=== PATIENT | female | born 1940 | race Caucasian/White ===

== ENCOUNTER 2023-08-08 12:00 | Inpatient (IN) | payer MEDICAID, MEDICARE ==
[~2023-08-08] VITALS: Ht 167.6 cm; Wt 68.0 kg
[2023-08-08 12:03] VITALS: BP 121/56; PULSE 101; RESP 18; TEMP 98.3
[2023-08-08] MEDS: NACL 0.9% 500 ML IV SCH (13:09)
[2023-08-08 13:12] LABS: RSV NEGATIVE (NEGATIVE)
[2023-08-08 13:15] LABS: BASOPHILS # (AUTO) 0.1 K/uL (0.00-0.22); BASOPHILS % (AUTO) 0.6 % (0.0-2.0); EOSINOPHILS # (AUTO) 0.1 K/uL (0-0.4); EOSINOPHILS % (AUTO) 1.3 % (0.0-4.0); HEMATOCRIT 31.7 % (36-48); HEMOGLOBIN 10.4 g/dL (12.0-16.0); LYMPHOCYTES % (AUTO) 10.3 % (20.5-51.1); MEAN CORPUSCULAR HEMOGLOBIN 30 pg (27-31); MEAN CORPUSCULAR HGB CONC 33 g/dL (33-37); MEAN CORPUSCULAR VOLUME 92.1 fL (80-94); MONOCYTES # (AUTO) 0.7 K/uL (0.8-1.0); MONOCYTES % (AUTO) 6.9 % (1.7-9.3); NEUTROPHILS # (AUTO) 8.1 K/uL (1.8-7.7); NEUTROPHILS % (AUTO) 80.9 % (42.2-75.2); PLATELET COUNT (AUTO) 231 K/uL (140-450); RED BLOOD CELL COUNT(AUTO) 3.45 MIL/uL (4.20-5.40); RED CELL DISTRIBUTION WIDTH 14.6 % (11.6-13.7)
[2023-08-08 13:29] LABS: ANION GAP 9.4 (8-16); CALCIUM 8.1 mg/dL (8.5-10.1); CHLORIDE 101 mmol/L (98-107); CREATININE 0.5 mg/dL (0.6-1.3); GLUCOSE 50 mg/dL (74-106); POTASSIUM 3.4 mmol/L (3.5-5.1); SODIUM SERUM 141 mmol/L (136-145); UREA NITROGEN, BLOOD 12 mg/dL (7-18)
[2023-08-08 13:38] LABS: ALANINE AMINOTRANSFERASE 7 U/L (12-78); ALKALINE PHOSPHATASE 99 U/L (50-136); ASPARTATE AMINOTRANSFERASE 33 U/L (15-37); BILIRUBIN,DIRECT 0.5 mg/dL (0.0-0.3); TOTAL BILIRUBIN 1.4 mg/dL (0.0-1.0); TOTAL PROTEIN, SERUM 6.7 g/dL (6.4-8.2)
[2023-08-08 13:40] LABS: LACTIC ACID 1.9 mmol/L (0.4-2.0)
[2023-08-08 14:24] VITALS: O2SAT 98
[2023-08-08 14:26] LABS: FLU A ANTIGEN negative (NEGATIVE); FLU B ANTIGEN negative (NEGATIVE)
[2023-08-08 14:28] LABS: APPEARANCE,URINE SL CLOUDY (CLEAR); BILIRUBIN,URINE NEGATIVE (NEGATIVE); BLOOD, URINE TRACE-I (NEGATIVE); COLOR,URINE OTHER (YELLOW); LEUKOCYTE ESTERASE ,URINE 2+ (NEGATIVE); NITRITE, URINE POSITIVE (NEGATIVE); PROTEIN,URINE 1+ (NEGATIVE); UGLUCOSE TRACE (NEGATIVE)
[2023-08-08 14:38] LABS: BLOOD GAS BASE EXCESS 10.3 mmol/L (-2.0-2.0); BLOOD GAS HCO3 35.1 mmol/L (22-26); BLOOD GAS PCO2 48.2 mmHg (35-45); BLOOD GAS PO2 66.7 mmHg (75-100)
[2023-08-08 14:39] LABS: BLOOD GAS O2 SAT% 93.2 % (92.0-98.5)
[2023-08-08 14:53] LABS: BACTERIA,URINE 10-30 (MOD) /HPF (None Seen); SQUAMOUS EPITHELIAL CELL,UR 0-3 (FEW) /LPF (0-3 (FEW)); WBC,URINE 16-25 (MOD) /HPF (0-5); YEAST,URINE Moderate /HPF (None Seen)
[2023-08-08] MEDS: NACL 0.9% 500 ML IV ONE (15:55)
[2023-08-08] MEDS ORDERED: BENZONATATE 100 MG CAPLF PO PRN (15:55)
[2023-08-08] MEDS ORDERED: CLONIDINE HYDROCHLORIDE 0.1 MG TAB PO PRN (15:55)
[2023-08-08] MEDS ORDERED: ACETAMINOPHEN 325 MG TAB PO PRN (15:55)
[2023-08-08] MEDS ORDERED: ONDANSETRON 4 MG/2 ML VIAL IVP PRN (15:55)
[2023-08-08] MEDS ORDERED: INSULIN LISPRO SLIDING SCALE 100 UNITS/ML VIAL SUBQ PRN (16:00)
[2023-08-08] MEDS ORDERED: PIPERACILLIN/TAZOBACTAM 3.375 GM VIAL IV ONE (16:43)
[2023-08-08] MEDS: PIPERACILLIN/TAZOBACTAM 3.375 GM in DEXTROSE 5% 50 ML IV ONE (16:55)
[2023-08-08] MEDS: NACL 0.9% 1,000 ML IV SCH (17:04)
[2023-08-08] MEDS ORDERED: cefTRIAXone 1,000 MG VIAL ONE (17:08)
[2023-08-08] MEDS: BLOOD GLUCOSE MONITORING 1 DEV DEV FS SCH (17:23)
[2023-08-08] MEDS: DEXTROSE 50% 50 ML SYR IVP PRN (17:30)
[2023-08-08] MEDS ORDERED: AZITHROMYCIN 500 MG INJ VIAL IV ONE (19:15)
[2023-08-08 19:21] VITALS: PULSE 115; RESP 17; O2SAT 99
[2023-08-08] MEDS: LEVALBUTEROL 0.63 MG/3 ML NEBU INH SCH (19:21)
[2023-08-08] MEDS: AZITHROMYCIN 500 MG in DEXTROSE 5% 250 ML IV SCH (20:40)
[2023-08-08 22:10] VITALS: BP 131/67; PULSE 111; PULSE 118; RESP 17; RESP 18; TEMP 98.2; O2SAT 97; O2SAT 99
[2023-08-09] VITALS (12 sets, daily range): BP systolic 104–150; BP diastolic 50–98; PULSE 98–122; RESP 16–20; TEMP 98–98.5; O2SAT 95–100
[2023-08-09 06:51] LABS: BASOPHILS # (AUTO) 0.1 K/uL (0.00-0.22); BASOPHILS % (AUTO) 0.6 % (0.0-2.0); EOSINOPHILS # (AUTO) 0.1 K/uL (0-0.4); EOSINOPHILS % (AUTO) 0.8 % (0.0-4.0); HEMATOCRIT 31.7 % (36-48); HEMOGLOBIN 10.6 g/dL (12.0-16.0); MEAN CORPUSCULAR HEMOGLOBIN 31 pg (27-31); MEAN CORPUSCULAR HGB CONC 34 g/dL (33-37); MEAN CORPUSCULAR VOLUME 91.5 fL (80-94); MONOCYTES # (AUTO) 0.8 K/uL (0.8-1.0); MONOCYTES % (AUTO) 8.8 % (1.7-9.3); NEUTROPHILS # (AUTO) 7.2 K/uL (1.8-7.7); NEUTROPHILS % (AUTO) 78.8 % (42.2-75.2); PLATELET COUNT (AUTO) 249 K/uL (140-450); RED BLOOD CELL COUNT(AUTO) 3.46 MIL/uL (4.20-5.40); RED CELL DISTRIBUTION WIDTH 15.1 % (11.6-13.7); WHITE BLOOD COUNT (AUTO) 9.2 K/uL (4.8-10.8)
[2023-08-09 07:18] LABS: ANION GAP 12.9 (8-16); CALCIUM 8.2 mg/dL (8.5-10.1); CARBON DIOXIDE 31.5 mmol/L (21-32); CHLORIDE 104 mmol/L (98-107); CREATININE 0.6 mg/dL (0.6-1.3); GLUCOSE 116 mg/dL (74-106); POTASSIUM 3.4 mmol/L (3.5-5.1); SODIUM SERUM 145 mmol/L (136-145); UREA NITROGEN, BLOOD 13 mg/dL (7-18)
[2023-08-09] MEDS: POTASSIUM CHLORIDE 10 MEQ TABER PO SCH (09:09)
[2023-08-09] MEDS: ENOXAPARIN 40 MG/0.4 ML SYR SUBQ SCH (09:13)
[2023-08-10] VITALS (8 sets, daily range): BP systolic 137–155; BP diastolic 55–92; PULSE 94–127; RESP 18–20; TEMP 96.8–98.6; O2SAT 94–97
[2023-08-10] MEDS: HYDROcodone/APAP 5/325 MG 1 TAB TAB PO PRN (00:06)
[2023-08-10 09:37] LABS: BASOPHILS % (AUTO) 0.4 % (0.0-2.0); EOSINOPHILS # (AUTO) 0.1 K/uL (0-0.4); EOSINOPHILS % (AUTO) 0.7 % (0.0-4.0); HEMATOCRIT 29.6 % (36-48); HEMOGLOBIN 9.8 g/dL (12.0-16.0); MEAN CORPUSCULAR HEMOGLOBIN 31 pg (27-31); MEAN CORPUSCULAR HGB CONC 33 g/dL (33-37); MEAN CORPUSCULAR VOLUME 91.8 fL (80-94); MONOCYTES # (AUTO) 0.6 K/uL (0.8-1.0); MONOCYTES % (AUTO) 6.2 % (1.7-9.3); NEUTROPHILS # (AUTO) 7.2 K/uL (1.8-7.7); NEUTROPHILS % (AUTO) 81.7 % (42.2-75.2); PLATELET COUNT (AUTO) 288 K/uL (140-450); RED BLOOD CELL COUNT(AUTO) 3.23 MIL/uL (4.20-5.40); WHITE BLOOD COUNT (AUTO) 8.9 K/uL (4.8-10.8)
[2023-08-10 09:57] LABS: ALANINE AMINOTRANSFERASE 48 U/L (12-78); ALBUMIN 2.1 g/dL (3.4-5.0); ALKALINE PHOSPHATASE 101 U/L (50-136); ANION GAP 18.9 (8-16); ASPARTATE AMINOTRANSFERASE 33 U/L (15-37); CALCIUM 8.5 mg/dL (8.5-10.1); CARBON DIOXIDE 23.9 mmol/L (21-32); CHLORIDE 105 mmol/L (98-107); CREATININE 0.5 mg/dL (0.6-1.3); GLUCOSE 111 mg/dL (74-106); POTASSIUM 3.8 mmol/L (3.5-5.1); SODIUM SERUM 144 mmol/L (136-145); TOTAL BILIRUBIN 1.1 mg/dL (0.0-1.0); TOTAL PROTEIN, SERUM 6.7 g/dL (6.4-8.2); UREA NITROGEN, BLOOD 13 mg/dL (7-18)
[2023-08-10] MEDS ORDERED: BENZ100C6 PO (12:51)
[2023-08-10] MEDS ORDERED: AZIT250T11 PO (12:51)
[2023-08-10] MEDS ORDERED: ACET-1182 PO (12:51)
[2023-08-10] MEDS ORDERED: LEVO750T75 PO (12:51)
[2023-08-10] MEDS ORDERED: THERAHONEY GEL 42.5 GM TP PRN (12:55)
[2023-08-10] MEDS ORDERED: FOAM DRESSING TP PRN (12:55)
[2023-08-10] MEDS: FOAM DRESSING TP SCH (13:09)
[2023-08-10] MEDS: THERAHONEY GEL 42.5 GM TP SCH (13:10)
[2023-08-10] MEDS: HYDRAGUARD CREAM TP SCH (13:10)
== END 2023-08-10 14:30 | disposition home or self-care (01) | DRG 137 ==
LOC: MED 12:00 → MMU 15:52 → UNDODEPER 17:29 → MTU 18:50
PROVIDERS: ADMIT Family Medicine; ATTEND Family Medicine
DX: J15.69 Pneumonia due to other Gram-negative bacteria (principal); E43 Unspecified severe protein-calorie malnutrition; Z68.24 Body mass index [BMI] 24.0-24.9, adult; E11.9 Type 2 diabetes mellitus without complications; E87.6 Hypokalemia; I10 Essential (primary) hypertension; I48.91 Unspecified atrial fibrillation; I25.10 Atherosclerotic heart disease of native coronary artery without angina pectoris; Z20.822 Contact with and (suspected) exposure to COVID-19; Z95.1 Presence of aortocoronary bypass graft
CPT/HCPCS: 36415; 36600; 71045; 80048; 80053; 80076; 81001; 82803; 82948; 83605; 83880; 84484; 85025; 87040; 87081; 87086; 87420; 93005; 94640; 96365; 96375; 99285; J0456; J0696; J1650; J1815; J2543; J7060; J7614; Q0092